=== PATIENT | female | born 1955 | race Caucasian/White ===

== ENCOUNTER 2022-12-19 06:26 | Day surgery (SDC) | payer OTHER ==
[~2022-12-19 06:26] MED LIST: Lactated Ringers 1,000 ML IV SCH; Sodium Chloride 0.9% 10 ML Syringe FLUSH PRN
[2022-12-19] MEDS ORDERED: Propofol 200 MG/20 ML SDV IV ONE (06:27)
[2022-12-19] MEDS ORDERED: Lidocaine 2% 5 ML SDV IV ONE (06:27)
[2022-12-19] MEDS ORDERED: Simethicone Drops 40 MG/0.6 ML 30 ML Bottle PO ONE (07:40)
== END 2022-12-19 09:00 | disposition home or self-care (01) ==
LOC: FB.SDS 06:26
PROVIDERS: ATTEND Surgery
DX: Z12.11 Encounter for screening for malignant neoplasm of colon (principal); D12.6 Benign neoplasm of colon, unspecified; E03.9 Hypothyroidism, unspecified; G47.00 Insomnia, unspecified; M85.80 Other specified disorders of bone density and structure, unspecified site; Z90.49 Acquired absence of other specified parts of digestive tract; Z79.899 Other long term (current) drug therapy; Z79.890 Hormone replacement therapy; Z91.048 Other nonmedicinal substance allergy status; Z98.890 Other specified postprocedural states; Z90.710 Acquired absence of both cervix and uterus
CPT/HCPCS: 00812; 45384; 88305; A9270; J2704; J7120

== ENCOUNTER 2025-01-23 18:04 | Emergency (ER) | payer MEDICARE, OTHER ==
[2025-01-23] MEDS ORDERED: Acetaminophen/HYDROcodone 325-5 MG Tab PO ONE (18:05)
[2025-01-23] MEDS: Acetaminophen/HYDROcodone 325-5 MG Tab PO ONE (18:19)
== END 2025-01-23 18:45 | disposition home or self-care (01) ==
LOC: FB.ED 18:04
DX: J18.9 Pneumonia, unspecified organism (principal); E03.9 Hypothyroidism, unspecified; Z79.890 Hormone replacement therapy; Z79.51 Long term (current) use of inhaled steroids; Z90.710 Acquired absence of both cervix and uterus
CPT/HCPCS: 99284; A9270